=== PATIENT | female | born 1980 | race Caucasian/White ===

== ENCOUNTER 2019-02-12 22:28 | Emergency (ER) | payer OTHER | END 2019-02-13 00:11 | disposition home or self-care (01) | LOC: FTE 02-13 00:11 | DX: S01.111A Laceration without foreign body of right eyelid and periocular area, initial encounter (principal); F17.210 Nicotine dependence, cigarettes, uncomplicated; W22.03XA Walked into furniture, initial encounter; Y92.9 Unspecified place or not applicable | CPT/HCPCS: 12011; 99282-25 ==